=== PATIENT | female | born 1980 | race Caucasian/White ===

== ENCOUNTER 2018-05-06 15:08 | Emergency (ER) | payer BC ==
[~2018-05-06] VITALS: Ht 157.5 cm; Wt 57.1 kg
[~2018-05-06 15:08] MED LIST: ACET325 PO; DICY20 PO; DIPH50 PO; FLUT.05NI; HYDACE5 PO; HYDMOR4 PO; Hair, Skin & N1 EACH PO; IBUP400 PO; IBUP800; MULVITMINE; NASACORT10.8 ML; OMEP20ER PO; ONDA4ODT MM; ONDA8 PO; ONDA8ODT PO; OXYACE5T; OXYACE5T PO; Percocet 5-3251 EACH PO; RANI150; RXLORA1 PO; Robaxin-750750 MG PO; SERT100 PO; TRAM50 PO; TRAZ50 PO
[2018-05-06 15:39] LABS: BASOPHILS ABSOLUTE AUTO 0.06 K/mm3 (0.00-0.23); BASOPHILS PERCENT AUTO 1 % (0-2); EOSINOPHILS ABSOLUTE AUTO 0.15 K/mm3 (0.00-0.68); EOSINOPHILS PERCENT AUTO 1 % (0-6); Hematocrit 45.3 % (33.0-51.0); Hemoglobin 14.5 g/dL (11.5-16.0); IMMATURE GRAN ABSOLUTE AUTO 0.03 K/mm3 (0.00-0.10); IMMATURE GRAN PERCENT AUTO 0 % (0-1); LYMPHOCYTES ABSOLUTE AUTO 2.35 K/mm3 (0.84-5.20); LYMPHOCYTES PERCENT AUTO 21 % (21-46); MONOCYTES ABSOLUTE AUTO 0.67 K/mm3 (0.16-1.47); MONOCYTES PERCENT AUTO 6 % (4-13); Mean Corpuscular HGB 30.5 pg (26.0-34.0); Mean Corpuscular Volume 95 fL (80-100); NEUTROPHILS PERCENT AUTO 70 % (41-73); Platelet Count 269 K/mm3 (150-400); RDW Coefficient Variation 12.4 % (11.7-14.2); Red Blood Cell Count 4.76 M/mm3 (3.80-5.20); White Blood Cell Count 10.96 K/mm3 (4.00-11.30)
[2018-05-06 15:41] LABS: Appearance, Urine Clear (Clear); Bilirubin, Urine Neg (Neg); Blood, Urine Neg (Neg); Color, Urine Yellow (P-Yellow); Glucose Qualitative, Urine Neg (Neg); Ketones, Urine Neg (Neg); Leukocyte Esterase, Urine Neg (Neg); Nitrite, Urine Neg (Neg); Protein, Urine Neg (Neg); Source, Urine Clean Catch; Urobilinogen, Urine NORM (Normal)
[2018-05-06 15:56] LABS: Alanine Aminotransfer (ALT/SGP 15 U/L (12-78); Albumin, Blood 3.7 g/dL (3.4-5.0); Albumin/Globulin Ratio 0.9 (0.8-1.8); Alk Phos 61 U/L (50-136); Anion Gap 6 mmol/L (6-16); Aspartate Aminotrans (AST/SGOT 11 U/L (12-37); Bilirubin, Total 0.3 mg/dL (0.1-1.0); Blood Urea Nitrogen 7 mg/dL (8-24); Bun/Creatinine Ratio 10.9 (12.0-20.0); CO2, Blood 22 mmol/L (21-32); Calcium, Blood 8.7 mg/dL (8.5-10.1); Chloride, Blood 110 mmol/L (98-108); Creatinine, Blood 0.64 mg/dL (0.40-1.00); Globulin, Blood 3.9 g/dL (2.2-4.0); Glomerular Filtration Rate >60 (60-); Glucose, Blood 92 mg/dL (70-99); Potassium, Blood 3.5 mmol/L (3.5-5.5); Sodium, Blood 138 mmol/L (136-145); Total Protein, Blood 7.6 g/dL (6.4-8.2)
[2018-05-06] MEDS ORDERED: ONDA4ODT MM (17:33)
== END 2018-05-06 17:52 | disposition home or self-care (01) ==
LOC: ER 15:08
PROVIDERS: Emergency Medicine
DX: K52.9 Noninfective gastroenteritis and colitis, unspecified (principal); Z88.0 Allergy status to penicillin; Z88.8 Allergy status to other drugs, medicaments and biological substances; Z79.899 Other long term (current) drug therapy; F17.200 Nicotine dependence, unspecified, uncomplicated
CPT/HCPCS: 36415; 74177; 80053; 81003; 81025; 83690; 85025; 96361; 96374; 96375; 99284-25; J2405; J3010; J7030; Q9967

== ENCOUNTER → 2019-07-31 | Outpatient (CLI) | payer BC | END | disposition home or self-care (01) | LOC: LAB SHORT 19:32 → LAB EV 19:32 | DX: J02.9 Acute pharyngitis, unspecified (principal) | CPT/HCPCS: 87077; 87081; 87185 ==

== ENCOUNTER → 2020-05-11 | Outpatient (CLI) | payer BC ==
[~2020-05-11] MED LIST changes: +BANOPHEN25 MG PO; +IRON18 MG PO; +LORA10ER PO; +METR500 PO; +MULVITA PO; -NASACORT10.8 ML; +NASACORT10.8 ML INH; +OXYC5 PO; +VITAMIN D3-ALO1 EACH PO; +VITAMIN D310 MC4 PO; +Vitamin B Comple1 EA PO
== END | disposition home or self-care (01) ==
LOC: PLD 09:38 → LAB SHORT 09:38
PROVIDERS: Physician Assistant Medical
DX: N88.9 Noninflammatory disorder of cervix uteri, unspecified (principal)
CPT/HCPCS: G0145

== ENCOUNTER → 2020-06-03 | Outpatient (CLI) | payer OTHER | END | disposition home or self-care (01) | LOC: LAB SHORT 14:03 → LAB 14:03 | DX: N92.0 Excessive and frequent menstruation with regular cycle (principal) | CPT/HCPCS: 88305 ==

== ENCOUNTER → 2020-06-16 | Outpatient (CLI) | payer OTHER ==
[2020-06-21 15:11] LABS: HPV 16 Negative (Negative); HPV 18 Negative (Negative)
== END ==
LOC: LAB SHORT 15:57 → PLD 15:57
PROVIDERS: Obstetrics & Gynecology
DX: Z01.419 Encounter for gynecological examination (general) (routine) without abnormal findings (principal)
CPT/HCPCS: 87625

== ENCOUNTER 2020-11-21 05:56 | Day surgery (SDC) | payer OTHER ==
[~2020-11-21] VITALS: Ht 157.5 cm; Wt 70.7 kg
[~2020-11-21 05:56] MED LIST changes: -METR500 PO; -OXYC5 PO
[2020-11-21] MEDS ORDERED: METR500 PO (06:18)
[2020-11-21] MEDS ORDERED: OMEP20ER PO (06:19)
--- NOTE | 2020-11-21 06:45 | NUR ---
PT AMBULATES TO SDS c STEADY GAIT. REPORTS NPO SINCE MIDNIGHT. History, Chart, Medications and Allergies reviewed before start of procedure. Lungs clear T/O to Auscultation. EARRINGS TO BILATERAL EARS X 2, TAPED AND JEWELRY REFUSAL PAPERWORK SIGNED. IV STARTED s DIFFICULTY, LABS SENT. + VOID.
--- NOTE | 2020-11-21 12:00 | NUR ---
PT ARRIVED TO UNIT FROM PACU. TRANSFERRED PT FROM [facility] TO BED. PT NAUSEATED W/MOVEMENT; MEDICATED PER ORDES FOR PAIN. LAP INCISIONS TO ABD CDI. SCANT AMOUNT SANG DRAINAGE NOTED. SMALL AMT SANG DRAINAGE NOTED TO MOISÉS PAD. LEDESMA CATH DRAINING CLEAR YELLOW URINE. IV INFUSING PER ORDERS. ORIENTED TO ROOM AND CALL LIGHT. PROVIDED K PAD FOR COMFORT.
[2020-11-21] MEDS ORDERED: OXYC5 PO (13:25)
--- NOTE | 2020-11-21 17:36 | NUR ---
PT'S LEDESMA DC'D BY SECURED ENTRANCE MONITOR. AMBULATED IN ROOM AND TO RESTROOM. VOIDED SMALL AMOUNT SOON LEDESMA CATH DC'D. ADVISED PT TO CALL WHEN NEEDS TO VOID IN ORDER TO PERFORM PVR. PT VERBALIZED UNDERSTANDING. REPORTS NAUSEA HAS RESOLVED; EATING MCDONALDS. REPORTS PAIN TOLERABLE, RATING 3/10. CALL LIGHT IN REACH. S.O. AT BEDSIDE.
--- NOTE | 2020-11-21 19:18 | NUR ---
PT VOIDED 50 ML, PVR SHOWED 10 ML ON BS. SPOKE TO ABHIJEET FIGUEROA TO DISCHARGE. GAVE PRESCRIPTION TO S.O. EARLIER IN DAY.
--- NOTE | 2020-11-21 19:21 | NUR ---
DISCHARGE REVIEWED ALL DC INSTRUCTIONS WITH PT, PRINTED INFO GIVE, IV'S X2 DC'D CATH INTACT, RX WAS ALREADY FILLED PER SPOUSE. NO FURTHER QUESTIONS OR CONCERNS AT THIS TIME. PT GETTING DRESSED, GIVEN EXTRA MESH UNDERWEAR. CRISIS INTERVENTION COUNSELOR TO WHEEL OUT PT.
--- NOTE | 2020-11-22 16:24 | NUR ---
11/22/20 1624 Flaquita Kaminski VERIFICATIONS: EDIT CHART.
== END 2020-11-21 19:23 | disposition home or self-care (01) ==
LOC: ORSCMMR 05:56 → ORD 07:30 → SURS 10:49 → ORSCMMR 19:23
PROVIDERS: Obstetrics & Gynecology
PROC: 0JQC0ZZ Repair Pelvic Region Subcutaneous Tissue and Fascia, Open Approach (ICD-10-PCS; principal; 2020-11-21 07:30)
PROC: 0UT9FZZ Resection of Uterus, Via Natural or Artificial Opening With Percutaneous Endoscopic Assistance (ICD-10-PCS; principal; 2020-11-21 07:30)
PROC: 0UT7FZZ Resection of Bilateral Fallopian Tubes, Via Natural or Artificial Opening With Percutaneous Endoscopic Assistance (ICD-10-PCS; principal; 2020-11-21 07:30)
DX: N92.0 Excessive and frequent menstruation with regular cycle (principal); N81.11 Cystocele, midline; Z87.891 Personal history of nicotine dependence; K21.9 Gastro-esophageal reflux disease without esophagitis; Z79.899 Other long term (current) drug therapy
CPT/HCPCS: 86850; 86900; 86901; A9270; J0171; J0690; J1100; J1885; J2270; J2405; J2704; J2765; J3010; J7120

== ENCOUNTER 2025-03-09 19:55 | Emergency (ER) | payer OTHER ==
[~2025-03-09] VITALS: Ht 157.5 cm; Wt 72.6 kg
[~2025-03-09 19:55] MED LIST changes: +METR500 PO; +OXYC5 PO
[2025-03-09] MEDS ORDERED: FLUO10 PO (20:09)
[2025-03-09 20:23] LABS: BASOPHILS ABSOLUTE AUTO 0.07 K/mm3 (0.00-0.23); BASOPHILS PERCENT AUTO 1 % (0-2); EOSINOPHILS ABSOLUTE AUTO 0.17 K/mm3 (0.00-0.68); EOSINOPHILS PERCENT AUTO 1 % (0-6); Hematocrit 39.2 % (33.0-51.0); Hemoglobin 13.6 g/dL (11.5-16.0); IMMATURE GRAN ABSOLUTE AUTO 0.06 K/mm3 (0.00-0.10); IMMATURE GRAN PERCENT AUTO 0 % (0-1); LYMPHOCYTES ABSOLUTE AUTO 2.16 K/mm3 (0.84-5.20); LYMPHOCYTES PERCENT AUTO 16 % (21-46); MONOCYTES ABSOLUTE AUTO 0.80 K/mm3 (0.16-1.47); MONOCYTES PERCENT AUTO 6 % (4-13); Mean Corpuscular HGB Conc 34.7 g/dL (31.5-36.5); Mean Corpuscular Volume 86 fL (80-100); NEUTROPHILS ABSOLUTE AUTO 10.32 K/mm3 (1.96-9.15); NEUTROPHILS PERCENT AUTO 76 % (41-73); NRBC ABSOLUTE 0.00 K/mm3 (0.00-0.02); NRBC Auto 0.0 /100 WBC (0.0-0.2); Platelet Count 321 K/mm3 (150-400); RDW Coefficient Variation 13.0 % (11.7-14.2); RDW Standard Deviation 40.8 fL (35.1-46.3)
[2025-03-09 20:58] LABS: Alanine Aminotransfer (ALT/SGP 52 U/L (12-78); Albumin, Blood 4.1 g/dL (3.4-5.0); Albumin/Globulin Ratio 1.1 (0.8-1.8); Anion Gap 12 mmol/L (3-11); Aspartate Aminotrans (AST/SGOT 48 U/L (12-37); Bilirubin, Total 0.5 mg/dL (0.1-1.0); Blood Urea Nitrogen 9 mg/dL (8-24); CO2, Blood 22 mmol/L (21-32); Calcium, Blood 9.4 mg/dL (8.5-10.1); Chloride, Blood 107 mmol/L (98-108); Creatinine, Blood 0.79 mg/dL (0.40-1.00); Globulin, Blood 3.9 g/dL (2.2-4.0); Glucose, Blood 157 mg/dL (70-99); Potassium, Blood 3.5 mmol/L (3.5-5.5); Sodium, Blood 137 mmol/L (136-145); Total Protein, Blood 8.0 g/dL (6.4-8.2)
[2025-03-09] MEDS ORDERED: Metoclopramide HCl 5MG / ML 2ML Vial IV ONE (21:30)
[2025-03-09] MEDS ORDERED: NS 1,000 ML IV SCH (21:30)
[2025-03-09 21:55] LABS: Ethanol (Alcohol), Blood, Med <3 mg/dL
[2025-03-10] MEDS ORDERED: RX Prepack 2 Tabs Ondansetron ODT 4MG UD ONE (00:10)
[2025-03-10] MEDS ORDERED: Metoclopramide HCl 5MG / ML 2ML Vial IV ONE (00:10)
[2025-03-10 00:50] VITALS: BP 117/87
[2025-03-10] MEDS ORDERED: ONDA4ODT MM (00:55)
== END 2025-03-10 00:55 | disposition home or self-care (01) ==
LOC: ER 19:55
PROVIDERS: Emergency Medicine
DX: R11.2 Nausea with vomiting, unspecified (principal); R74.01 Elevation of levels of liver transaminase levels; Z88.0 Allergy status to penicillin; Z79.899 Other long term (current) drug therapy; Z87.891 Personal history of nicotine dependence
CPT/HCPCS: 80053; 80320; 83690; 85025; 93005; 93010; 96374; 96376; 99284-25; A9270; J2765; J7030